=== PATIENT | male | born 1950 | race Caucasian/White ===

== ENCOUNTER 2016-09-26 18:30 | Emergency (ER) | payer OTHER ==
[~2016-09-26] VITALS: Ht 177.8 cm; Wt 127.8 kg
[~2016-09-26 18:30] MED LIST: ASPERDRINK81 MG PO; ATENOLOL50 M1 PO; COUMADIN,JANTOVE5 MG PO; FIBERCON625 MG PO; GLIPIZIDE5 M1 PO; GLUCOPHAGE1000 MG PO; HUMULIN N100 UNITS/ SQ; HUMULIN R100 UNITS/ SC; HYDROCHLOROTH12.5 M1 PO; SIMVASTATIN5 MG PO; VITAMIN B12-FO1 EACH PO; ZESTRIL,PRINIV2.5 MG PO; [UNRECOGNIZED DRUG - OTHER]
[2016-09-26 18:36] VITALS: BP 164/102
== END 2016-09-26 20:24 | disposition home or self-care (01) ==
LOC: EME 18:30
DX: S20.219A Contusion of unspecified front wall of thorax, initial encounter (principal); S30.811A Abrasion of abdominal wall, initial encounter; R10.10 Upper abdominal pain, unspecified; W19.XXXA Unspecified fall, initial encounter; I10 Essential (primary) hypertension; E11.9 Type 2 diabetes mellitus without complications; Z79.4 Long term (current) use of insulin; Z86.718 Personal history of other venous thrombosis and embolism; Z79.01 Long term (current) use of anticoagulants; Z79.82 Long term (current) use of aspirin; Z87.891 Personal history of nicotine dependence
CPT/HCPCS: 71020; 93005; 99281; 99283

== ENCOUNTER 2017-07-05 16:44 | Emergency (ER) | payer OTHER ==
[~2017-07-05] VITALS: Ht 172.7 cm; Wt 141.0 kg
[~2017-07-05 16:44] MED LIST changes: -COUMADIN,JANTOVE5 MG PO; +COUMADIN2.5 MG PO
[2017-07-05 17:43] LABS: BASE EXCESS -4.8 mEq/L (-3 to +3); BICARBONATE 21.1 mEq/L (22-26); CARBOXY HGB 2.6 % (0-5); COMMENTS - BLOOD GASES A+C+; METHEMOGLOBIN 0.8 % (0-1.5); PCO2 42 mm Hg (35-45); PO2 68 mm Hg (80-100); SITE RR; pH 7.31 (7.35-7.45)
[2017-07-05 17:45] LABS: APPEARANCE CLEAR ((CLEAR)); BILIRUBIN NEGATIVE; BLOOD NEGATIVE; COLOR YELLOW ((YELLOW)); GLUCOSE (STRIP) 50; KETONES NEGATIVE; LEUKOCYTES NEGATIVE; NITRITE NEGATIVE; PROTEIN (STRIP) NEGATIVE; SPECIFIC GRAVITY 1.017 (1.000-1.030); UCUL ADDED? NO; UROBILINOGEN 0.2 MG/DL (0.2-1.0)
[2017-07-05 17:50] LABS: BASOPHIL (%) 0.2 % (0-1); EOSINOPHIL (%) 2.5 % (0-5); EOSINOPHIL COUNT 0.2 K/uL (0-0.3); HEMATOCRIT 27.4 % (38.0-50.0); HEMOGLOBIN 9.3 G/DL (12.5-16.6); IMMATURE GRANULOCYTE (%) 0.7 % (0.0-0.7); LYMPHOCYTE (%) 12.2 % (15-42); LYMPHOCYTE COUNT 1.2 K/uL (1.0-2.8); MCH 32.3 PG (29.0-34.0); MCHC 33.9 G/DL (30.0-36.0); MCV 95.1 FL (86-99); MONOCYTE (%) 11.4 % (3-12); MONOCYTE COUNT 1.1 K/uL (0-0.8); PLATELET COUNT 66 K/uL (156-360); RBC DIS.WIDTH-CV 14.2 % (11.8-14.6); RBC DIS.WIDTH-SD 49.2 % (39-53); RED BLOOD COUNT 2.88 M/uL (4.00-5.50); WHITE BLOOD COUNT 9.6 K/uL (4.1-10.2)
[2017-07-05 17:56] LABS: INTER. NORMALIZED RATIO 1.3
[2017-07-05 18:04] LABS: ALBUMIN 3.1 g/dL (3.2-4.8); CHLORIDE 107 mEq/L (99-109); POTASSIUM 4.7 mEq/L (3.7-5.4); SODIUM 135 mEq/L (136-147)
[2017-07-05 18:06] LABS: GLUCOSE 117 mg/dL (70-99); TOTAL PROTEIN 6.4 g/dL (6.4-8.3)
[2017-07-05 18:08] LABS: TOTAL BILIRUBIN 1.7 mg/dL (0.0-1.0)
[2017-07-05 18:10] LABS: ALKALINE PHOSPHATASE 56 IU/L (3-129); CREATININE 1.2 mg/dL (0.6-1.3); GFR ESTIMATE (CALCULATED) > 59 mL/min/ (58.99-99999)
[2017-07-05 18:11] LABS: AST (GOT) 25 IU/L (2-34); DIRECT BILIRUBIN 0.8 mg/dL (0.0-0.3); UREA NITROGEN (BUN) 32 mg/dL (9-23)
[2017-07-05 18:13] LABS: ALT (GPT) 18 IU/L (3-49)
[2017-07-05 20:10] LABS: O2 FLOW 0 L/MIN
[2017-07-05 20:11] LABS: DEVICE NO DEVICE
[2017-07-05 21:20] VITALS: BP 119/76
[2017-07-06] MEDS ORDERED: OXAYDO5 MG PO (21:01)
[2017-07-06] MEDS ORDERED: TYLENOL REGULA325 MG PO (21:03)
[2017-07-06] MEDS ORDERED: OXYCONTIN10 MG PO (21:07)
[2017-07-06] MEDS ORDERED: DOCUSATE SODIU1 EAC1 PO (21:10)
[2017-07-06] MEDS ORDERED: ANUSOL-HC21 GM PR (21:14)
[2017-07-06] MEDS ORDERED: NEURONTIN300 MG PO (21:15)
[2017-07-06] MEDS ORDERED: FLUNISOLIDE25 ML BOTH NARES (21:17)
[2017-07-06] MEDS ORDERED: XIFAXAN550 MG PO (21:19)
[2017-07-06] MEDS ORDERED: ZYRTEC10 M2 PO (21:21)
[2017-07-06] MEDS ORDERED: COZAAR25 MG PO (21:22)
[2017-07-06] MEDS ORDERED: EFFER-K 10 MEQ10 MEQ PO (21:23)
[2017-07-06] MEDS ORDERED: PROTONIX20 MG PO (21:24)
[2017-07-06] MEDS ORDERED: TOPAMAX50 MG PO (21:32)
[2017-07-06] MEDS ORDERED: CONSTULOSE10 GM/15 M PO (21:36)
== END 2017-07-05 21:20 | disposition home or self-care (01) ==
LOC: EME 16:44
PROVIDERS: Emergency Medicine
DX: R53.1 Weakness (principal); T40.2X5A Adverse effect of other opioids, initial encounter; Z96.651 Presence of right artificial knee joint; E11.9 Type 2 diabetes mellitus without complications; Z79.4 Long term (current) use of insulin; I10 Essential (primary) hypertension; I25.2 Old myocardial infarction; K21.9 Gastro-esophageal reflux disease without esophagitis; I25.10 Atherosclerotic heart disease of native coronary artery without angina pectoris; Z86.718 Personal history of other venous thrombosis and embolism; Z79.01 Long term (current) use of anticoagulants; Z88.0 Allergy status to penicillin; Z87.891 Personal history of nicotine dependence
CPT/HCPCS: 36600; 70450; 71045; 80048; 80076; 81003; 82140; 82803; 85025; 85610; 93005; 99281; 99284; J2310

== ENCOUNTER 2017-07-06 13:55 | Emergency (ER) | payer OTHER ==
[~2017-07-06] VITALS: Ht 172.7 cm; Wt 134.9 kg
[2017-07-06 14:56] LABS: BASOPHIL (%) 0.2 % (0-1); EOSINOPHIL (%) 3.6 % (0-5); EOSINOPHIL COUNT 0.2 K/uL (0-0.3); HEMATOCRIT 24.4 % (38.0-50.0); HEMOGLOBIN 8.2 G/DL (12.5-16.6); IMMATURE GRANULOCYTE (%) 0.4 % (0.0-0.7); LYMPHOCYTE (%) 25.7 % (15-42); LYMPHOCYTE COUNT 1.3 K/uL (1.0-2.8); MCH 31.7 PG (29.0-34.0); MCHC 33.6 G/DL (30.0-36.0); MCV 94.2 FL (86-99); MONOCYTE (%) 14.9 % (3-12); MONOCYTE COUNT 0.8 K/uL (0-0.8); NEUTROPHIL (%) 55.2 % (45-76); NEUTROPHIL COUNT 2.9 K/uL (1.8-6.4); RBC DIS.WIDTH-CV 14.1 % (11.8-14.6); RBC DIS.WIDTH-SD 48.3 % (39-53); RED BLOOD COUNT 2.59 M/uL (4.00-5.50); WHITE BLOOD COUNT 5.2 K/uL (4.1-10.2)
[2017-07-06 15:01] LABS: IMM.PLATELET FRACTION 3.1 (1-7); PLATELET COUNT 50 K/uL (156-360)
[2017-07-06 15:07] LABS: ALBUMIN 2.8 g/dL (3.2-4.8); CHLORIDE 110 mEq/L (99-109); POTASSIUM 4.2 mEq/L (3.7-5.4); SODIUM 139 mEq/L (136-147)
[2017-07-06 15:09] LABS: TOTAL PROTEIN 5.8 g/dL (6.4-8.3)
[2017-07-06 15:11] LABS: TOTAL BILIRUBIN 1.5 mg/dL (0.0-1.0)
[2017-07-06 15:13] LABS: ALKALINE PHOSPHATASE 51 IU/L (3-129); GFR ESTIMATE (CALCULATED) > 59 mL/min/ (58.99-99999)
[2017-07-06 15:14] LABS: UREA NITROGEN (BUN) 36 mg/dL (9-23)
[2017-07-06 15:15] LABS: AST (GOT) 28 IU/L (2-34)
[2017-07-06 15:16] LABS: ALT (GPT) 17 IU/L (3-49)
[2017-07-06 15:30] VITALS: BP 108/53
[2017-07-06 15:32] LABS: GLUCOSE 52 mg/dL (70-99)
[2017-07-06 16:31] LABS: INTER. NORMALIZED RATIO 1.3
[2017-07-06] MEDS ORDERED: OXAYDO5 MG PO (21:01)
[2017-07-06] MEDS ORDERED: TYLENOL REGULA325 MG PO (21:03)
[2017-07-06] MEDS ORDERED: OXYCONTIN10 MG PO (21:07)
[2017-07-06] MEDS ORDERED: DOCUSATE SODIU1 EAC1 PO (21:10)
[2017-07-06] MEDS ORDERED: ANUSOL-HC21 GM PR (21:14)
[2017-07-06] MEDS ORDERED: NEURONTIN300 MG PO (21:15)
[2017-07-06] MEDS ORDERED: FLUNISOLIDE25 ML BOTH NARES (21:17)
[2017-07-06] MEDS ORDERED: XIFAXAN550 MG PO (21:19)
[2017-07-06] MEDS ORDERED: ZYRTEC10 M2 PO (21:21)
[2017-07-06] MEDS ORDERED: COZAAR25 MG PO (21:22)
[2017-07-06] MEDS ORDERED: EFFER-K 10 MEQ10 MEQ PO (21:23)
[2017-07-06] MEDS ORDERED: PROTONIX20 MG PO (21:24)
[2017-07-06] MEDS ORDERED: TOPAMAX50 MG PO (21:32)
[2017-07-06] MEDS ORDERED: CONSTULOSE10 GM/15 M PO (21:36)
== END 2017-07-06 16:39 | disposition hospice, inpatient (51) ==
LOC: EME 13:55
PROVIDERS: Emergency Medicine
DX: R26.9 Unspecified abnormalities of gait and mobility (principal); Z96.651 Presence of right artificial knee joint; Z98.890 Other specified postprocedural states; D69.6 Thrombocytopenia, unspecified; D62 Acute posthemorrhagic anemia; R53.1 Weakness; Z79.01 Long term (current) use of anticoagulants; Z79.82 Long term (current) use of aspirin; Z91.81 History of falling; E16.2 Hypoglycemia, unspecified; Z79.4 Long term (current) use of insulin; Z87.891 Personal history of nicotine dependence
CPT/HCPCS: 73564; 80053; 82140; 82948; 85025; 85610; 99281; 99284

== ENCOUNTER 2017-07-06 15:44 | Inpatient (IN) | payer OTHER ==
[~2017-07-06] VITALS: Ht 174 cm; Wt 128.8 kg
[2017-07-06 16:50] VITALS: BP 109/55
[2017-07-06] MEDS ORDERED: OXAYDO5 MG PO (21:01)
[2017-07-06] MEDS ORDERED: TYLENOL REGULA325 MG PO (21:03)
[2017-07-06] MEDS ORDERED: OXYCONTIN10 MG PO (21:07)
[2017-07-06] MEDS ORDERED: DOCUSATE SODIU1 EAC1 PO (21:10)
[2017-07-06] MEDS ORDERED: ANUSOL-HC21 GM PR (21:14)
[2017-07-06] MEDS ORDERED: NEURONTIN300 MG PO (21:15)
[2017-07-06] MEDS ORDERED: FLUNISOLIDE25 ML BOTH NARES (21:17)
[2017-07-06] MEDS ORDERED: XIFAXAN550 MG PO (21:19)
[2017-07-06] MEDS ORDERED: ZYRTEC10 M2 PO (21:21)
[2017-07-06] MEDS ORDERED: COZAAR25 MG PO (21:22)
[2017-07-06] MEDS ORDERED: EFFER-K 10 MEQ10 MEQ PO (21:23)
[2017-07-06] MEDS ORDERED: PROTONIX20 MG PO (21:24)
[2017-07-06] MEDS ORDERED: TOPAMAX50 MG PO (21:32)
[2017-07-06] MEDS ORDERED: CONSTULOSE10 GM/15 M PO (21:36)
[2017-07-07 00:37] VITALS: BP 105/52
[2017-07-07 05:15] LABS: HEMATOCRIT 22.7 % (38.0-50.0); HEMOGLOBIN 7.4 G/DL (12.5-16.6); MCH 31.2 PG (29.0-34.0); MCHC 32.6 G/DL (30.0-36.0); MCV 95.8 FL (86-99); RBC DIS.WIDTH-CV 14.1 % (11.8-14.6); RBC DIS.WIDTH-SD 48.7 % (39-53); RED BLOOD COUNT 2.37 M/uL (4.00-5.50); WHITE BLOOD COUNT 3.3 K/uL (4.1-10.2)
[2017-07-07 05:19] LABS: INTER. NORMALIZED RATIO 1.4
[2017-07-07 05:45] LABS: IMM.PLATELET FRACTION 1.7 (1-7); PLAT.SUFFICIENCY VERY DECREASED; PLATELET COUNT 47 K/uL (156-360)
[2017-07-07 05:47] LABS: ALBUMIN 2.4 G/DL (3.2-4.8); ALKALINE PHOSPHATASE 43 IU/L (3-129); ALT (GPT) 14 IU/L (3-49); AST (GOT) 22 IU/L (2-34); CHLORIDE 111 MEQ/L (99-109); GFR ESTIMATE (CALCULATED) > 59 mL/min/ (58.99-99999); GLUCOSE 115 mg/dL (70-99); POTASSIUM 4.3 MEQ/L (3.7-5.4); SODIUM 141 MEQ/L (136-147); TOTAL BILIRUBIN 1.7 MG/DL (0.0-1.0); TOTAL PROTEIN 5.4 G/DL (6.4-8.3); UREA NITROGEN (BUN) 28 mg/dL (9-23)
[2017-07-07 06:43] VITALS: BP 106/55
[2017-07-07 15:08] VITALS: BP 147/67
[2017-07-07 18:27] LABS: ABS NEUTROPHIL COUNT 1.8; EOSINOPHIL ABS CT 0.2
[2017-07-08 05:41] VITALS: BP 135/91
[2017-07-08 06:05] LABS: BASOPHIL (%) 0.6 % (0-1); EOSINOPHIL COUNT 0.1 K/uL (0-0.3); HEMATOCRIT 24.2 % (38.0-50.0); HEMOGLOBIN 8.1 G/DL (12.5-16.6); IMMATURE GRANULOCYTE (%) 0.6 % (0.0-0.7); LYMPHOCYTE (%) 28.7 % (15-42); MCH 31.6 PG (29.0-34.0); MCHC 33.5 G/DL (30.0-36.0); MCV 94.5 FL (86-99); MONOCYTE (%) 12.8 % (3-12); MONOCYTE COUNT 0.5 K/uL (0-0.8); NEUTROPHIL (%) 53.3 % (45-76); NEUTROPHIL COUNT 1.9 K/uL (1.8-6.4); PLATELET COUNT 60 K/uL (156-360); RBC DIS.WIDTH-SD 47.8 % (39-53); RED BLOOD COUNT 2.56 M/uL (4.00-5.50); WHITE BLOOD COUNT 3.5 K/uL (4.1-10.2)
[2017-07-08 06:14] LABS: INTER. NORMALIZED RATIO 1.5
[2017-07-08 06:29] LABS: IRON 44 MCG/DL (35-150); TRANSFERRIN (TIBC) 193.4 mg/dL (215-380); TRANSFERRIN SATUR. 23 % (20-55)
[2017-07-08 09:24] LABS: FOLIC ACID (FOLATE) > 22.0 NG/ML (5.0-22.0)
[2017-07-08 16:30] VITALS: BP 127/61
[2017-07-09 05:50] LABS: HEMATOCRIT 24.2 % (38.0-50.0); HEMOGLOBIN 8.1 G/DL (12.5-16.6); MCH 31.5 PG (29.0-34.0); MCHC 33.5 G/DL (30.0-36.0); MCV 94.2 FL (86-99); PLATELET COUNT 66 K/uL (156-360); RBC DIS.WIDTH-CV 14.1 % (11.8-14.6); RBC DIS.WIDTH-SD 47.4 % (39-53); RED BLOOD COUNT 2.57 M/uL (4.00-5.50); WHITE BLOOD COUNT 3.6 K/uL (4.1-10.2)
[2017-07-09 06:03] LABS: INTER. NORMALIZED RATIO 1.8
[2017-07-09 06:22] VITALS: BP 132/61
[2017-07-09 15:44] VITALS: BP 139/62
[2017-07-10 06:10] VITALS: BP 118/65
[2017-07-10 06:31] LABS: INTER. NORMALIZED RATIO 1.9
[2017-07-10 14:38] VITALS: BP 132/63
[2017-07-11 05:43] VITALS: BP 118/61
[2017-07-11 06:10] LABS: INTER. NORMALIZED RATIO 2.3
[2017-07-11 15:27] VITALS: BP 138/63
[2017-07-11 20:46] VITALS: BP 138/67
[2017-07-12 05:39] VITALS: BP 124/63
[2017-07-12 05:57] LABS: HEMATOCRIT 25.1 % (38.0-50.0); HEMOGLOBIN 8.3 G/DL (12.5-16.6); MCH 31.3 PG (29.0-34.0); MCHC 33.1 G/DL (30.0-36.0); MCV 94.7 FL (86-99); PLATELET COUNT 64 K/uL (156-360); RBC DIS.WIDTH-CV 14.7 % (11.8-14.6); RBC DIS.WIDTH-SD 50.1 % (39-53); RED BLOOD COUNT 2.65 M/uL (4.00-5.50)
[2017-07-12 06:09] LABS: INTER. NORMALIZED RATIO 2.2
[2017-07-12 07:12] LABS: ALBUMIN 2.6 G/DL (3.2-4.8); ALKALINE PHOSPHATASE 51 IU/L (3-129); ALT (GPT) 11 IU/L (3-49); AST (GOT) 20 IU/L (2-34); CHLORIDE 108 MEQ/L (99-109); CREATININE 0.7 MG/DL (0.6-1.3); GFR ESTIMATE (CALCULATED) > 59 mL/min/ (58.99-99999); GLUCOSE 136 mg/dL (70-99); POTASSIUM 3.7 MEQ/L (3.7-5.4); SODIUM 136 MEQ/L (136-147); TOTAL BILIRUBIN 1.8 MG/DL (0.0-1.0); TOTAL PROTEIN 5.8 G/DL (6.4-8.3); UREA NITROGEN (BUN) 15 mg/dL (9-23)
[2017-07-12 16:06] VITALS: BP 137/63
[2017-07-13 05:49] VITALS: BP 129/67
[2017-07-13 06:41] LABS: INTER. NORMALIZED RATIO 1.9
[2017-07-13] MEDS ORDERED: CYANOCOBALAM1000 MCG PO (11:08)
[2017-07-13] MEDS ORDERED: FERROUS SULFAT325 MG PO (11:08)
[2017-07-13] MEDS ORDERED: BENADRYL25 MG PO (11:08)
[2017-07-13] MEDS ORDERED: ASCORBIC ACID500 M3 PO (11:08)
[2017-07-13] MEDS ORDERED: FOLIC ACID1 MG PO (11:08)
[2017-07-13] MEDS ORDERED: COUMADIN2.5 MG PO (11:30)
[2017-07-13] MEDS ORDERED: THERAGRAN1 TABLET PO (11:30)
[2017-07-13 15:20] VITALS: BP 136/71
== END 2017-07-13 17:41 | disposition home health service (06) | DRG 560 ==
LOC: 3WEST 15:44 → ENPENDDIS 07-13 → 3WEST 07-13 17:41
PROVIDERS: Anesthesiology; Physical Medicine & Rehabilitation Pain Medicine
PROC: F07M0ZZ Range of Motion and Joint Mobility Treatment of Musculoskeletal System - Whole Body (ICD-10-PCS; principal; 2017-07-06)
DX: Z47.1 Aftercare following joint replacement surgery (principal); I82.431 Acute embolism and thrombosis of right popliteal vein; R26.2 Difficulty in walking, not elsewhere classified; Z96.651 Presence of right artificial knee joint; I25.10 Atherosclerotic heart disease of native coronary artery without angina pectoris; T81.72XA Complication of vein following a procedure, not elsewhere classified, initial encounter; Y83.8 Other surgical procedures as the cause of abnormal reaction of the patient, or of later complication, without mention of misadventure at the time of the procedure; G47.33 Obstructive sleep apnea (adult) (pediatric); D62 Acute posthemorrhagic anemia; D61.818 Other pancytopenia; I10 Essential (primary) hypertension; E66.01 Morbid (severe) obesity due to excess calories; K21.9 Gastro-esophageal reflux disease without esophagitis; E11.9 Type 2 diabetes mellitus without complications; M17.11 Unilateral primary osteoarthritis, right knee; Z91.81 History of falling; J98.11 Atelectasis; R53.1 Weakness; Z68.41 Body mass index [BMI] 40.0-44.9, adult
CPT/HCPCS: 36600; 70450; 71045; 73560; 73564; 80048; 80053; 80076; 81003; 82140; 82607; 82746; 82803; 82948; 83540; 84466; 85007; 85025; 85025 91; 85027; 85060; 85610; 93005; 93971; 94640; 94640 76; 97110 GO; 97530 GP; 99281; 99284; J1815; J2310